=== PATIENT | female | born 1985 | race African-American/Black ===

== ENCOUNTER → 2022-06-13 | Day surgery (SDC) | payer SELFPAY ==
[2022-06-06 14:52] VITALS: BMI 26.9
[~2022-06-13] MED LIST: ACETAMINOPHEN 1000 MG/100 ML BAG IVPB PRN; ACETAMINOPHEN 325 MG TABLET (FP) PO PRN; ACETAMINOPHEN INJECTION 100 ML IVPB ONE; BACITRACIN ZINC 15 GM TUBE TOPICAL OINTMENT ONE; BUPIVACAINE 0.25% /EPI 1:200,000 10 ML VIAL NR ONE; BUPIVACAINE HCL/EPINEPHRINE/PF 30 ML VIAL IJ ONE; DEXAMETHASONE SOD PHOSPHATE 4 MG/1 ML VIAL ONE; EPINEPHrine/PF 1 MG/1 ML (1:1,000) AMPULE ONE; FENTANYL CITRATE/PF 50 MCG/ML VIAL ONE; GLYCOPYRROLATE 0.2 MG/1 ML VIAL ONE; HEPARIN NA (PORCINE) 5,000 UNITS/ML 1ML VIAL ONE; LACTATED RINGERS SOLUTION 1,000 ML IV SCH; LIDOCAINE HCL 2% (20ML MULTI-DOSE VIAL) ONE; LIDOCAINE HCL/PF 2% SDV 5ML VIAL ONE; MIDAZOLAM HCL 2 MG/2 ML SINGLE DOSE VIAL ONE; NEOSTIGMINE METHYLSULFATE 0.5 MG/1 ML - 10 ML MDV ONE; ONDANSETRON 4 MG/2 ML VIAL IVPUSH PRN; ONDANSETRON 4 MG/2 ML VIAL ONE; PROPOFOL 20 ML ONE; ROCURONIUM BROMIDE 50 MG/5 ML SYRINGE ONE; SCOPOLAMINE HYDROBROMIDE 1 PATCH PATCH.TD72 ONE; ceFAZolin SODIUM 1 GM VIAL ONE; oxyCODONE HCL 5 MG TABLET ONE; oxyCODONE HCL 5 MG TABLET PO ONE; oxyCODONE HCL 5 MG TABLET PO PRN
[2022-06-13 09:02] VITALS: RESP 16
[2022-06-13 14:08] VITALS: TEMP 98.3
[2022-06-13 15:13] VITALS: BP 129/72; PULSE 90
== END | disposition home or self-care (01) ==
LOC: FASU 08:23
PROVIDERS: ATTEND Plastic Surgery
CPT/HCPCS: 84703; 94760; J1644